=== PATIENT | male | born 1970 | race Caucasian/White ===

== ENCOUNTER 2017-01-28 14:04 | Emergency (ER) | payer OTHER ==
[2017-01-28 14:46] VITALS: BP 160/85; PULSE 100; RESP 18; TEMP 98
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
== END 2017-01-28 16:05 | disposition home or self-care (01) ==
LOC: EC 14:04
DX: Z48.02 Encounter for removal of sutures (principal); I10 Essential (primary) hypertension; E78.5 Hyperlipidemia, unspecified; F17.200 Nicotine dependence, unspecified, uncomplicated; Z79.899 Other long term (current) drug therapy
CPT/HCPCS: 99281

== ENCOUNTER 2018-10-23 14:13 | Emergency (ER) | payer OTHER ==
[2018-10-23 14:20] VITALS: BP 144/88; PULSE 78; RESP 18; TEMP 98.6
[2018-10-23 14:34] LABS: Glucose,Whole Blood 114 mg/dL (75-99)
[2018-10-23] MEDS ORDERED: ONDANSETRON 4 MG/2 ML VIAL IVP STA (14:36)
[2018-10-23] MEDS ORDERED: HYDROmorphone 1 MG/ML 1 ML SYRINGE IVP STA (14:36)
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
[2018-10-23 14:58] LABS: Basophils # (A) 0.1 k/uL (0-0.2); Basophils % (A) 1 %; Eosinophils # (A) 0.3 k/uL (0-0.7); Eosinophils % (A) 3 %; HCT 45.5 % (39.0-53.0); HGB 14.8 gm/dL (13.0-17.5); Lymphocytes # (A) 1.3 k/uL (1.0-4.8); Lymphocytes % (A) 12 %; MCH 29.2 pg (25.0-35.0); MCHC 32.6 g/dL (31.0-37.0); MCV 89.5 fL (80.0-100.0); Mean Platelet Volume 6.7; Monocytes # (A) 0.4 k/uL (0-1.0); Monocytes % (A) 4 %; Neutrophils # (A) 8.7 k/uL (1.3-7.7); Neutrophils % (A) 81 %; Platelet Count 332 k/uL (150-450); RBC 5.08 m/uL (4.30-5.90); RDW 13.6 % (11.5-15.5); WBC 10.8 k/uL (3.8-10.6)
[2018-10-23 15:01] LABS: INR 0.9 (<1.2); Prothrombin Time 10.1 sec (9.0-12.0)
[2018-10-23 15:04] LABS: ALT 44 U/L (21-72); AST 28 U/L (17-59); Albumin 4.6 g/dL (3.5-5.0); Alcohol <10 mg/dL; Alkaline Phosphatase 74 U/L (38-126); Amylase 35 U/L (30-110); Anion Gap 8 mmol/L; Blood Urea Nitrogen 17 mg/dL (9-20); Calcium 10.1 mg/dL (8.4-10.2); Carbon Dioxide 25 mmol/L (22-30); Chloride 105 mmol/L (98-107); Creatine Kinase 133 U/L (55-170); Glucose 101 mg/dL (74-99); Lipase 48 U/L (23-300); Potassium 4.5 mmol/L (3.5-5.1); Sodium 138 mmol/L (137-145); Total Bilirubin 0.5 mg/dL (0.2-1.3); Total Protein 7.4 g/dL (6.3-8.2)
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
[2018-10-23 15:17] LABS: Creatine Kinase MB 1.6 ng/mL (0.0-2.4); Troponin I <0.012 ng/mL (0.000-0.034)
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
[2018-10-23] MEDS ORDERED: ETOMIDATE 2 MG/ML 10 ML VIAL IVP STA (15:57)
[2018-10-23] MEDS ORDERED: KETOROLAC 60 MG/2 ML VIAL IVP STA (17:06)
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
== END 2018-10-23 17:50 | disposition home or self-care (01) ==
LOC: EC 14:13
DX: S52.502A Unspecified fracture of the lower end of left radius, initial encounter for closed fracture (principal); E78.5 Hyperlipidemia, unspecified; I10 Essential (primary) hypertension; F17.200 Nicotine dependence, unspecified, uncomplicated; Z79.899 Other long term (current) drug therapy; V19.49XA Pedal cycle driver injured in collision with other motor vehicles in traffic accident, initial encounter; Y93.55 Activity, bike riding; Y92.410 Unspecified street and highway as the place of occurrence of the external cause
CPT/HCPCS: 36415; 93005; 86900; 86901; 80053; 82150; 82550; 82553; 83605; 83690; 84484; 85025; 85610; 85730; 86850; 80320; 72170; 73100; 73110; 71045; 99284; 25605; 99152; 99153; 96374; 96375 ×2; J2405; J1885; J1170

== ENCOUNTER 2019-03-09 13:26 | Emergency (ER) | payer OTHER ==
[2019-03-09 13:38] VITALS: BP 149/80; PULSE 101; RESP 18; TEMP 98.3
[2019-03-09] MEDS ORDERED: PROPOFOL 10 MG/ML 20 ML VIAL IV ONE (15:06)
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
== END 2019-03-09 15:10 | disposition left against medical advice (07) ==
LOC: EC 13:26
DX: S52.502A Unspecified fracture of the lower end of left radius, initial encounter for closed fracture (principal); R45.1 Restlessness and agitation; E78.5 Hyperlipidemia, unspecified; I10 Essential (primary) hypertension; F17.200 Nicotine dependence, unspecified, uncomplicated; Z79.899 Other long term (current) drug therapy; Z98.890 Other specified postprocedural states; Z82.61 Family history of arthritis; V13.4XXA Pedal cycle driver injured in collision with car, pick-up truck or van in traffic accident, initial encounter; Y93.55 Activity, bike riding; Y92.89 Other specified places as the place of occurrence of the external cause; Z53.20 Procedure and treatment not carried out because of patient's decision for unspecified reasons
CPT/HCPCS: 99283

== ENCOUNTER 2021-02-09 04:13 | Emergency (ER) | payer OTHER ==
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
[2021-02-09 04:31] VITALS: TEMP 97.7
[2021-02-09] MEDS ORDERED: KETOROLAC 15 MG/ML 1 ML VIAL IM STA (04:31)
[2021-02-09] MEDS ORDERED: ACET/COD 300 MG/30 MG STARTER PACK 6 TAB BTL PO STA (04:31)
[2021-02-09] MEDS: IBUPROFEN 600 MG STARTER PACK 4 TAB BTL PO STA ×2 (04:44→07:08)
[2021-02-09] MEDS: Acetaminophen-Codeine 300-30mg TAB PO STA ×2 (04:45→05:13)
--- NOTE | 2021-02-09 04:56 | XR ---
EXAMINATION TYPE: XR knee limited LT DATE OF EXAM: 02/09/2021 COMPARISON: NONE HISTORY: Knee pain TECHNIQUE: 2 views FINDINGS: There is an acute vertical fracture through the lateral tibial plateau. There is comminutio n. There is mild knee joint effusion. The distal femur appears intact. There is also transverse fract ure through the proximal tibial metaphysis. IMPRESSION: Comminuted fracture of the proximal tibia with lateral tibial plateau fracture.
[2021-02-09] MEDS ORDERED: SODIUM CHLORIDE 0.9% 1,000 ML IV STA (05:11)
[2021-02-09] MEDS ORDERED: MORPHINE SULFATE 4 MG/ML SYRINGE IV STA (05:11)
[2021-02-09 06:05] LABS: Basophils # (A) 0.1 k/uL (0-0.2); Basophils % (A) 0 %; Eosinophils # (A) 0.2 k/uL (0-0.7); Eosinophils % (A) 1 %; HGB 14.9 gm/dL (13.0-17.5); Lymphocytes # (A) 1.1 k/uL (1.0-4.8); Lymphocytes % (A) 6 %; MCH 31.1 pg (25.0-35.0); MCHC 34.5 g/dL (31.0-37.0); MCV 90.1 fL (80.0-100.0); Mean Platelet Volume 7.8; Monocytes # (A) 0.5 k/uL (0-1.0); Monocytes % (A) 3 %; Neutrophils # (A) 16.5 k/uL (1.3-7.7); Neutrophils % (A) 90 %; Platelet Count 289 k/uL (150-450); RBC 4.78 m/uL (4.30-5.90); RDW 14.9 % (11.5-15.5); WBC 18.3 k/uL (3.8-10.6)
[2021-02-09 06:16] LABS: INR 0.9 (<1.2); Partial Thromboplastin Time 23.4 sec (22.0-30.0); Prothrombin Time 10.1 sec (9.0-12.0)
[2021-02-09 06:21] LABS: ALT 17 U/L (4-49); AST 27 U/L (17-59); African American GFR (CKD) >90 (>60 ml/min/1.73 sqM); Albumin 4.4 g/dL (3.5-5.0); Alkaline Phosphatase 61 U/L (38-126); Anion Gap 8 mmol/L; Blood Urea Nitrogen 18 mg/dL (9-20); Calcium 9.5 mg/dL (8.4-10.2); Carbon Dioxide 22 mmol/L (22-30); Chloride 105 mmol/L (98-107); Glucose 104 mg/dL (74-99); Magnesium 2.1 mg/dL (1.6-2.3); Non-African American GFR(CKD) >90 (>60 ml/min/1.73 sqM); Phosphorus 2.8 mg/dL (2.5-4.5); Potassium 4.5 mmol/L (3.5-5.1); Sodium 135 mmol/L (137-145); Total Bilirubin 0.3 mg/dL (0.2-1.3)
[2021-02-09 06:25] LABS: Appearance,Urine Clear (Clear); Bilirubin,Urine Negative (Negative); Blood,Urine Negative (Negative); Color,Urine Yellow; Glucose,Urine (UA) Negative (Negative); Ketones,Urine Trace (Negative); Leukocyte Esterase,Urine Negative (Negative); Nitrite,Urine Negative (Negative); Protein,Urine Negative (Negative); Specific Gravity,Urine 1.014 (1.001-1.035); Urobilinogen,Urine <2.0 mg/dL (<2.0)
[2021-02-09 07:03] VITALS: BP 132/87; PULSE 82; RESP 16
== END 2021-02-09 07:15 | disposition other institution (70) ==
LOC: EC 04:13
DX: S82.142A Displaced bicondylar fracture of left tibia, initial encounter for closed fracture (principal); I10 Essential (primary) hypertension; E78.5 Hyperlipidemia, unspecified; F12.90 Cannabis use, unspecified, uncomplicated; Z79.899 Other long term (current) drug therapy; Z82.49 Family history of ischemic heart disease and other diseases of the circulatory system; V28.4XXA Motorcycle driver injured in noncollision transport accident in traffic accident, initial encounter; Y92.410 Unspecified street and highway as the place of occurrence of the external cause
CPT/HCPCS: 36415; 80053; 83735; 84100; 85025; 85610; 85730; 81003; 73560; 96374; 96372; 99285; L1830; J2270; J1885

== ENCOUNTER 2021-02-13 00:41 | Emergency (ER) | payer OTHER ==
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
[2021-02-13 01:52] VITALS: BP 116/56; PULSE 102; RESP 20; TEMP 98.1
== END 2021-02-13 01:40 | disposition home or self-care (01) ==
LOC: EC 00:41
DX: S82.142D Displaced bicondylar fracture of left tibia, subsequent encounter for closed fracture with routine healing (principal); I10 Essential (primary) hypertension; E78.5 Hyperlipidemia, unspecified; F17.200 Nicotine dependence, unspecified, uncomplicated; F12.90 Cannabis use, unspecified, uncomplicated; Z79.1 Long term (current) use of non-steroidal anti-inflammatories (NSAID); V86.56XD Driver of dirt bike or motor/cross bike injured in nontraffic accident, subsequent encounter; Y92.410 Unspecified street and highway as the place of occurrence of the external cause
CPT/HCPCS: 99283

== ENCOUNTER 2021-04-04 09:03 | Inpatient (IN) | payer MEDICAID, OTHER ==
[2021-04-04 09:48] LABS: Amphetamine Screen,Urine Not Detected (NotDetected); Barbiturate Screen,Urine Not Detected (NotDetected); Benzodiazepines Screen,Urine Not Detected (NotDetected); Cocaine Screen,Urine Not Detected (NotDetected); Methadone Screen, Urine Not Detected (NotDetected); Opiate Screen,Urine Detected (NotDetected); Oxycodone Screen, Urine Detected (NotDetected); Phencyclidine Screen,Urine Not Detected (NotDetected); Tricyclic Antidepressant,Urine Not Detected (NotDetected); Urn Cannabinoid Scrn Detected (NotDetected)
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
[2021-04-04] MEDS ORDERED: MAGNESIUM HYDROXIDE 2,400 MG/10 ML CUP PO PRN (12:49)
[2021-04-04] MEDS ORDERED: MAG HYDROX/AL HYDROX/SIMETH 30 ML CUP PO PRN (12:49)
[2021-04-04] MEDS ORDERED: LORazepam 2 MG/ML INJ IM PRN (12:53)
[2021-04-04] MEDS ORDERED: HALOPERIDOL LACTATE 5 MG/ML 1 ML VIAL IM PRN (12:54)
[2021-04-04] MEDS ORDERED: LORazepam 1 MG TAB PO PRN (12:57)
[2021-04-04 13:40] VITALS: RESP 15
[2021-04-04] MEDS ORDERED: OLANZapine ODT 5 MG TAB PO PRN (15:36)
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
[2021-04-04] MEDS: ACETAMINOPHEN TAB 325 MG TAB PO PRN (17:43)
[2021-04-04] MEDS: FLUoxetine HCL 20 MG CAP PO SCH (18:32)
[2021-04-04] MEDS: traZODone HCL 50 MG TAB PO SCH (21:04)
[2021-04-05] MEDS: NICOTINE 21MG/24HR PATCH TRANSDERM SCH (07:44)
[2021-04-05] MEDS: LISINOPRIL-HCTZ 10-12.5 MG 1 EACH TAB PO SCH (07:44)
[2021-04-05] MEDS: ACETAMINOPHEN TAB 325 MG TAB PO PRN (07:46)
[2021-04-05 08:14] LABS: Basophils % (A) 0 %; Eosinophils # (A) 0.3 k/uL (0-0.7); Eosinophils % (A) 3 %; HCT 46.2 % (39.0-53.0); Lymphocytes # (A) 1.4 k/uL (1.0-4.8); Lymphocytes % (A) 14 %; MCH 29.7 pg (25.0-35.0); MCHC 32.4 g/dL (31.0-37.0); MCV 91.7 fL (80.0-100.0); Mean Platelet Volume 7.9; Monocytes # (A) 0.3 k/uL (0-1.0); Monocytes % (A) 3 %; Neutrophils # (A) 7.4 k/uL (1.3-7.7); Neutrophils % (A) 78 %; Platelet Count 348 k/uL (150-450); RBC 5.04 m/uL (4.30-5.90); RDW 13.5 % (11.5-15.5); WBC 9.5 k/uL (3.8-10.6)
[2021-04-05 08:32] LABS: ALT 11 U/L (4-49); AST 18 U/L (17-59); African American GFR (CKD) >90 (>60 ml/min/1.73 sqM); Albumin 4.2 g/dL (3.5-5.0); Alkaline Phosphatase 94 U/L (38-126); Anion Gap 9 mmol/L; Blood Urea Nitrogen 14 mg/dL (9-20); Calcium 9.7 mg/dL (8.4-10.2); Carbon Dioxide 23 mmol/L (22-30); Chloride 106 mmol/L (98-107); Glucose 104 mg/dL (74-99); Non-African American GFR(CKD) >90 (>60 ml/min/1.73 sqM); Potassium 4.5 mmol/L (3.5-5.1); Sodium 138 mmol/L (137-145); Total Bilirubin 0.5 mg/dL (0.2-1.3); Total Protein 7.3 g/dL (6.3-8.2)
[2021-04-05] MEDS ORDERED: ERGOCALCIFEROL 1,250 MCG (50,000 IU) CAPSULE PO SCH (09:00)
[2021-04-05] MEDS: FLUoxetine HCL 20 MG CAP PO SCH (09:49)
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
[2021-04-05] MEDS: FLUoxetine HCL 10 MG CAP PO SCH (13:02)
[2021-04-05] MEDS: OLANZapine 10 MG TAB PO SCH ×2 (13:02→21:24)
[2021-04-05] MEDS: IBUPROFEN 800 MG TAB PO SCH ×3 (13:03→21:24)
[2021-04-05 16:40] LABS: Cholesterol 171 mg/dL (0-200); LDL Cholesterol,Calculated 100.8 mg/dL (0.0-131.0)
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
[2021-04-05] MEDS: traZODone HCL 50 MG TAB PO SCH (21:24)
[2021-04-06] MEDS: LISINOPRIL-HCTZ 10-12.5 MG 1 EACH TAB PO SCH (08:44)
[2021-04-06] MEDS: OLANZapine 10 MG TAB PO SCH (08:44)
[2021-04-06] MEDS: FLUoxetine HCL 10 MG CAP PO SCH (08:46)
[2021-04-06] MEDS: NICOTINE 21MG/24HR PATCH TRANSDERM SCH (08:46)
[2021-04-06] MEDS: IBUPROFEN 600 MG TAB PO SCH ×3 (09:01→21:26)
[2021-04-06] MEDS ORDERED: FLUoxetine HCL 10 MG CAP PO STA (11:08)
[2021-04-06] MEDS ORDERED: NICOTINE GUM (POLACRILEX) 2 MG GUM BUCCAL PRN (11:14)
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
[2021-04-06] MEDS: LORATADINE 10 MG TAB PO SCH (11:24)
[2021-04-06] MEDS: ATORVASTATIN 10 MG TAB PO SCH (20:22)
[2021-04-06] MEDS ORDERED: OLANZapine 10 MG TAB PO SCH (21:00)
[2021-04-06] MEDS ORDERED: OLANZapine 7.5 MG TAB PO SCH (21:00)
[2021-04-07 06:54] VITALS: BP 129/76; PULSE 97; TEMP 97.1
[2021-04-07] MEDS: NICOTINE 21MG/24HR PATCH TRANSDERM SCH (07:58)
[2021-04-07] MEDS: FLUoxetine HCL 20 MG CAP PO SCH (07:59)
[2021-04-07] MEDS: IBUPROFEN 600 MG TAB PO SCH ×3 (07:59→22:20)
[2021-04-07] MEDS: LISINOPRIL-HCTZ 10-12.5 MG 1 EACH TAB PO SCH (07:59)
[2021-04-07] MEDS: LORATADINE 10 MG TAB PO SCH (07:59)
--- NOTE | 2021-04-07 09:42 | P.PN ---
Progress Note - Text Progress Note Date: 04/07/21 Interval History: Patient was seen lying in his bed this morning and was directable and agreeable to speak with junior copywriter in the office. Patient appeared to be less irritable today with junior copywriter and more cooperative. He states that he is feeling less dizzy today and more alert. He claims that he did not sleep well last night because he did not get his trazodone. He states that he only got about 4 hours of sleep last night. He claims that he does not know whether he can go back to his previous residence at this time however claims that he does have money for a hotel to go to. He claims that his mood has been gradually improving since being on the unit and states that he "socialized more" yesterday in groups and plans to go to more today. He states that yesterday he was feeling misused having "dry heaves" however did not vomit but today feels much better. He claims that he has an im proving appetite. At this time patient denies any suicidal or homical ideations, intent or plan. Patient denies any auditory, visual hallucinations. Patient has been compliant with his medications. Mental Status Exam: General Appearance: Patient appears to be using a walker, stated age is alert, directable, and attempts to be cooperative. Behavior: Patient is calmly seated without any agitated behavior. Using a walker. Speech: Patient's speech is fluent and nonpressured. Rambles at times Mood/Affect: Mood is improving mildly, affect is congruent and constricted. Suicidality/Homicidality: Patient denies having any suicidal or homicidal ideation intent or plan. Perceptions: Patient denies any visual hallucinations and denies any auditory hallucinations Though content/process: There is no evidence of any delusional thought content and thought process is linear and goal-directed. Rambles at times. Memory and concentration: AOX3, grossly intact for the purposes of this session Judgment and insight: Improving mildly Assessment Psychosis unspecified, rule out substance-induced psychotic episode Cannabis use disorder Nicotine dependence Plan: -Patient continues to meet criteria for inpatient psychiatric admission for symptom stabilization and safety. Patient has signed adult voluntary form and was placed in patient's chart. -Medications: Decreased Zyprexa to 10 mg daily at bedtime for mood stabilization/psychosis. Restarted trazodone 50 mg daily at bedtime for insomnia. Prozac to 20 mg daily for mood/anxiety. -When necessary Ativan and Haldol for agitation/aggression. -NRT - nicotine patch + nicotine gum -SW on board for discharge planning. Encouraged the patient to participate in milieu. day care worker to gather further information about patient's discharge planning whether he'll be able to go to his previous residence or will need to find a new place to go upon discharge. Likely discharge tomorrow.
[2021-04-07] MEDS ORDERED: traZODone HCL 50 MG TAB PO SCH (21:00)
[2021-04-07] MEDS ORDERED: OLANZapine 10 MG TAB PO SCH (21:00)
[2021-04-07] MEDS: ATORVASTATIN 10 MG TAB PO SCH (22:20)
[2021-04-08] MEDS: NICOTINE 21MG/24HR PATCH TRANSDERM SCH (08:30)
[2021-04-08] MEDS: LISINOPRIL-HCTZ 10-12.5 MG 1 EACH TAB PO SCH (08:30)
[2021-04-08] MEDS: IBUPROFEN 600 MG TAB PO SCH (08:31)
[2021-04-08] MEDS: FLUoxetine HCL 20 MG CAP PO SCH (08:32)
[2021-04-08] MEDS: LORATADINE 10 MG TAB PO SCH (08:33)
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
== END 2021-04-08 12:11 | disposition home or self-care (01) | DRG 885 ==
LOC: EC 09:03 → 3MHU 12:31
PROVIDERS: ADMIT Psychiatry & Neurology Psychiatry; ATTEND Psychiatry & Neurology Psychiatry
DX: F22 Delusional disorders (principal); F17.200 Nicotine dependence, unspecified, uncomplicated; F39 Unspecified mood [affective] disorder; F41.9 Anxiety disorder, unspecified; F12.10 Cannabis abuse, uncomplicated; E78.5 Hyperlipidemia, unspecified; G47.00 Insomnia, unspecified; I10 Essential (primary) hypertension; Z79.899 Other long term (current) drug therapy; Z82.49 Family history of ischemic heart disease and other diseases of the circulatory system; Z20.822 Contact with and (suspected) exposure to COVID-19
CPT/HCPCS: 80053; 80061; 80306; 82075; 83036; 84443; 85025; 87635; 99284